=== PATIENT | female | born 1995 | race Caucasian/White ===

== ENCOUNTER 2020-07-04 01:04 | Inpatient (IN) | payer OTHER, SELFPAY ==
[2020-07-04] MEDS ORDERED: Butorphanol Tartrate 1 MG/ML VIAL SLOW IVP PRN (01:55)
[2020-07-04] MEDS ORDERED: Ondansetron PF 4 MG/2 ML Vial IVP PRN ×3 (01:55→09:48)
[2020-07-04] MEDS ORDERED: Lidocaine 1% (PF) 30 ML VIAL SC PRN (01:55)
[2020-07-04] MEDS ORDERED: Ibuprofen 800 MG TAB PO PRN (01:55)
[2020-07-04] MEDS ORDERED: HYDROcodone/Acetaminophen 5/325 mg Tablet PO PRN ×4 (01:55→09:48)
[2020-07-04] MEDS ORDERED: hydrALAZINE 20 MG/ML VIAL SLOW IVP PRN ×2 (01:55→09:48)
[2020-07-04] MEDS ORDERED: NS / Oxytocin 40 units/1000ml 1,000 ML IV PRN (01:55)
[2020-07-04] MEDS ORDERED: NS w/ Oxytocin 30 units 500 ML IVPB SCH (02:09)
[2020-07-04] MEDS ORDERED: Fentanyl 4 mcg/Bup 0.1% Cadd 100 ML ONE (02:21)
[2020-07-04] MEDS: Lactated Ringer's 1,000 ML IV SCH ×2 (02:41→03:43)
[2020-07-04 02:44] LABS: Hemoglobin 10.9 g/dL (12.0-16.0); Mean Corpuscular HGB CONC 34.8 g/dL (32.0-36.0); Mean Corpuscular Volume 86.2 fL (78.0-98.0); Mean Platelet Volume 9.7 fL (7.4-10.4); Platelet Count 80 thou/uL (130-400); Red Blood Cell (RBC) Count 3.62 mill/uL (4.20-5.40); White Blood Cell (WBC) Count 18.7 thou/uL (4.8-10.8)
[2020-07-04] MEDS ORDERED: diphenhydrAMINE 25 MG CAP PO PRN ×2 (03:00→09:48)
[2020-07-04] MEDS ORDERED: fentaNYL Citrate/PF 2,000 MCG in Sodium Chloride 0.9% 60 ML IV PRN (03:00)
[2020-07-04] MEDS ORDERED: Zolpidem Tartrate 5 MG TAB PO PRN ×2 (03:00→09:48)
[2020-07-04] MEDS ORDERED: Naloxone HCl 0.4 mg/ml Vial IV PRN (03:00)
[2020-07-04] MEDS ORDERED: Promethazine HCl 25 MG/ML VIAL IM PRN ×2 (03:00→09:48)
[2020-07-04] MEDS ORDERED: diphenhydrAMINE 50 MG/ML VIAL IM/IV PRN (03:00)
[2020-07-04 03:16] LABS: INR-International Normal Ratio 1.4; PTT 33.3 sec (22.9-36.1); Prothrombin Time 17.4 sec (12.0-14.7)
[2020-07-04 03:20] LABS: HBSAg Index 0.16 S/CO (0-0.99); Hep B Surf Ag Non-Reactive S/CO (NonReactive)
[2020-07-04 03:36] LABS: Fibrinogen 54 mg/dL (253-463)
[2020-07-04] MEDS ORDERED: Lactated Ringer's 1,000 ML IV SCH (04:15)
[2020-07-04 04:41] LABS: Syphilis Antibody Nonreactive (Nonreactive); Syphilis Antibody Index 0.02 S/CO (<1.00 Non-Reactive)
[2020-07-04] MEDS ORDERED: Misoprostol 200 MCG TAB ONE (05:07)
[2020-07-04] MEDS ORDERED: Methylergonovine 0.2 MG TAB ONE (05:07)
[2020-07-04] MEDS ORDERED: Carboprost 250 MCG/ML AMP ONE (05:08)
[2020-07-04] MEDS ORDERED: Fentanyl 100 MCG/2 ML VIAL ONE ×2 (05:09→06:05)
[2020-07-04] MEDS ORDERED: SUGAMMADEX SODIUM 500 MG/5 ML VIAL ONE (05:44)
[2020-07-04 06:09] LABS: Platelet Count 47 thou/uL (130-400)
[2020-07-04 06:11] LABS: Fibrinogen 185 mg/dL (253-463); INR-International Normal Ratio 1.3; PTT 33.7 sec (22.9-36.1); Prothrombin Time 16.6 sec (12.0-14.7)
--- NOTE | 2020-07-04 06:13 | PRG ---
DATE OF SERVICE: 07/04/2020 The patient is a 25-year-old G2, P1 female, presenting with contractions and bleeding and found to have an IUFD at 36 weeks and 5 days, believed to be secondary to abruption. While I was in a delivery, her labs returned and called out to me. Hemoglobin was 10.9, hematocrit 31.2, and platelets of 80,000. Coagulation showed PT of 17.4, INR of 1.4, PTT of 33.3, and fibrinogen of 54 and D-dimer greater than 20. Vital signs were stable at 105/59, heart rate in the one teens saturating 98% on room air. It was reported to me that she has had about 500 mL up to that point of new blood loss since arrival. 2 units of packed red blood cells, 2 units of FFP, and 2 units of cryoprecipitate were ordered and transfusion begun. Dr. Amaro her primary OB was notified while I was in the delivery and came and assumed care. The patient was taken to the operating room for a primary . Please refer to Dr. Amaro's report for details. Job ID: [id number]
[2020-07-04] MEDS ORDERED: Ondansetron HCl/PF 4 MG/2 ML Vial IVP PRN (06:29)
[2020-07-04] MEDS ORDERED: L&D-Morphine 4 MG/ML VIAL SLOW IVP PRN (06:29)
[2020-07-04] MEDS ORDERED: HYDROmorphone 2 MG/ML VIAL SLOW IVP PRN (06:29)
[2020-07-04] MEDS ORDERED: Meperidine HCl/PF 25 MG/ML VIAL SLOW IVP PRN (06:29)
[2020-07-04] MEDS ORDERED: Ketorolac Tromethamine 30 MG/ML VIAL IVP SCH (06:30)
[2020-07-04 06:46] LABS: D-Dimer Test Greater than 20.00 *mcg/mL (0.27-0.43)
[2020-07-04 07:08] LABS: FSP-Qualitative ABNORMAL (Normal); FSP-Semiquantitative >=160 & <320 mcg/mL (Less than 5)
[2020-07-04 08:14] LABS: SARS-CoV-2 MS2 Positive; SARS-CoV-2 N Gene Negative; SARS-CoV-2 S Gene Negative; SARS-CoV-2 by NAA Not Detected (NotDetected); SARS-CoV-2 orf1ab Negative
[2020-07-04] MEDS ORDERED: Adacel (T-DAP) 0.5 ML SYRINGE IM ONE (09:48)
[2020-07-04] MEDS ORDERED: Varicella virus, LIVE 0.5 ML VIAL SC ONE (09:48)
[2020-07-04] MEDS ORDERED: Measles/Mumps/Rubella 10 MCG/0.5 ML VIAL SC ONE (09:48)
[2020-07-04] MEDS ORDERED: NS / Oxytocin 40 units/1000ml 1,000 ML IV SCH (09:48)
[2020-07-04] MEDS ORDERED: Bisacodyl 10 MG SUPP PR PRN (09:48)
[2020-07-04] MEDS ORDERED: Methylergonovine 0.2 MG/ML VIAL IM PRN (09:48)
[2020-07-04] MEDS ORDERED: Prenatal Vitamin 1 TAB PO SCH (10:00)
[2020-07-04] MEDS ORDERED: Docusate Calcium (SURFAK) 240 MG CAP PO SCH (10:00)
[2020-07-04] MEDS ORDERED: Ketorolac Tromethamine 30 MG/ML VIAL IVP PRN (10:10)
[2020-07-04] MEDS ORDERED: Ketorolac Tromethamine 30 MG/ML VIAL ONE (10:18)
[2020-07-04 11:38] LABS: #Eosinphils 0.1 thou/uL (0.0-0.7); #Lymphocytes 2.2 thou/uL (1.20-3.40); #Monocytes 1.1 thou/uL (0.11-0.59); #Neutrophils 15.7 thou/uL (1.40-6.50); %Basophils 0.2 % (0.0-1.0); %Eosinophils 0.4 % (0.0-10.0); %Lymphocytes 11.5 % (21.0-51.0); %Monocytes 5.7 % (0.0-10.0); %Neutrophils 82.2 % (42.0-75.0); Band 22 % (5-11); Hemoglobin 9.8 g/dL (12.0-16.0); Lymphocytes 6 % (21-51); MDiff Complete? YES; Mean Corpuscular HGB CONC 34.4 g/dL (32.0-36.0); Mean Corpuscular Hemoglobin 29.2 pg (27.0-31.0); Mean Corpuscular Volume 84.9 fL (78.0-98.0); Mean Platelet Volume 10.6 fL (7.4-10.4); Monocytes 5 % (0-10); Neutrophil 67 % (42-75); Platelet Count 47 thou/uL (130-400); Platelet Morphology Comment Appears Decreased; Polychromasia SLIGHT = 2-3 cells (100X) (0-2/hpf); RBC Distribution Width 14.4 % (11.5-14.5); Red Blood Cell (RBC) Count 3.34 mill/uL (4.20-5.40); White Blood Cell (WBC) Count 19.1 thou/uL (4.8-10.8)
[2020-07-04] MEDS ORDERED: Ibuprofen 800 MG TAB PO SCH (14:00)
[2020-07-04 14:57] VITALS: BMI 32.9
[2020-07-04] MEDS ORDERED: metroNIDAZOLE 500 MG in Premix Bag 1 BAG IVPB SCH (15:00)
[2020-07-04] MEDS: CEFAZOLIN 2 GM in Premix Bag 1 BAG IVPB SCH (15:29)
[2020-07-04 18:36] LABS: PTT 27.1 sec (22.9-36.1); Prothrombin Time 13.4 sec (12.0-14.7)
--- NOTE | 2020-07-04 19:56 | PDOC.PP ---
Post Progress Note Post Day #: 0 PO intake tolerated: yes Flatus: no Ambulation: no Weight Weight 192 lb Most Recent Monitor Data Heart Rate from ECG 103 NIBP 100/56 - Physical Examination General: NAD Cardiovascular: no m/r/g, RRR Respiratory: clear to auscultation bilaterally, non-labored breathing Abdominal: + bowel sounds, lochia, no distention Extremities: negative homans (B) Skin: CS incision dry & intact Neurological: no gross focal deficits Psychiatric: A&Ox3, normal affect (PT/PTT/INR is back to a normal range, with stable appearing blood counts. WBC at 19 with increased bands, and therefor I have ordered further antibiotics in the post-operative periof, and added Metronidazole as well. Will transfer to PP UNIT.) Result Diagrams: 07/04/20 10:38 Additional Labs: Post Labs Hep Bs Antigen Non-Reactive S/CO (NonReactive) 07/04/20 02:27 Blood Type A POSITIVE 07/04/20 04:07
--- NOTE | 2020-07-04 20:56 | OP ---
DATE OF PROCEDURE: 07/04/2020, 0521 CANCELING MACHINE OPERATOR Surgeon: Dieter Amaro MD Printing Machine Operator: Josué Baxter MD PREOPERATIVE DIAGNOSIS: 1. Intrauterine at 36 weeks and 5 days 2. Acute Placental Abruption before presenting to the hospital resulting in sudden and profound retroplacental hemorrhage 3. Ultrasound confirmed a diagnosis of intrauterine demise upon arrival 4. 6 cm cervical dilation, with suspected SROM 5. Laboratory confirmed Coagulopathy upon presentation 6. Acute Blood Loss Anemia POSTOPERATIVE DIAGNOSIS: 1. Intrauterine at 36 weeks and 5 days 2. Acute Placental Abruption before presenting to the hospital resulting in sudden and profound retroplacental hemorrhage 3. Ultrasound confirmed a diagnosis of intrauterine demise upon arrival 4. 6 cm cervical dilation, with suspected SROM 5. Laboratory confirmed Coagulopathy upon presentation 6. Acute Blood Loss Anemia 7. Uterus was full of clot at time of uterine incision weighted at 420g, supporting the diagnosis of placental abruption. PROCEDURE: Primary low-transverse section (for diagnosis of placental abruption, acute massive hemorrhage, and ensuing coagulopathy with fear that it could progress to disseminated intravascular coagulopathy. Code Deni had been called). FINDINGS: Nonviable male infant, Apgars of 0 and 0 3360g, 7 pounds 6 ounces. No unusual findings were noted with the umbilical cord. Once the fetus was delivered, the placenta was found to be abrupted with an additional 420 mL of blood clot present inside the uterus, which was scooped out into a separate bucket. QUANTITATIVE BLOOD LOSS: To our best ability included 750 mL in the suction canister, 675 mL in laparotomy sponges, in addition 420 mL of clot noted inside the uterus consistent with placental abruption for a total of 1845 mL of blood. From the patient's account today, she believes she lost approximately a liter of blood en route to the hospital, putting her total blood loss approaching 3 L. COMPLICATIONS: 1. Massive hemorrhage as a result of placental abruption. 2. Coagulopathy. DETAILS OF THE PROCEDURE: I was first notified about this patient by telephone from Dr. Baxter, who reported a 36 week demise and possible placental abruption after he personally performed an ultrasound, and could not see heart tones. The patient was initially found to be 6cm dilated, and the initial hope from Dr. Baxter and the L&D team was that she could safely deliver the fetus vaginally, thus sparing her from the risks and healing associated with c- section. Approximately an hour later, upon notification by the charge nurse that this patient was showing signs of worsening hemorrhage, and laboratory evidence of coagulopathy, I left from home immediately to the [facility] Labor and Delivery unit. In route, by telephone, I asked the charge nurse to order a stat Anesthesia consultation, and reviewed blood product orders, in preparation for the likely need for . A erin hart was called just as I was arriving on the unit, and Dr. Baxter was also walking up to reassess the patient as I arrived. The CORE INSERTER steam flattener also joined us. The patient was extremely pale in appearance, and I asked that the patient be immediately taken back to the operating room, where blood products could best be administered, and I made the decision to proceed with , in order to try and hemodynamically stabilize the patient. I was also fearful that DIC could be developing, or could develop if trial of vaginal labor was continued. The patient was consented and taken back to the operating room where general anesthesia was found to be adequate. She was then prepped and draped in the normal sterile fashion. Dr. Keenan arrived on the scene, and a thorough time-out was performed by the entire operative team. Prior to incision, I made sure that blood products were ordered and available, and pRBCs and FFP had already been started. Ancef 2g IV was also started. An incision was then made with a scalpel. The incision was carried through the adipose tissue down to the underlying rectus fascia using both sharp dissection as well as cautery. Once the fascia was identified, it was incised in the midline and then the fascial incision was carried through in both lateral directions using sharp as well as cautery dissection techniques. Next, the superior aspect of the rectus fascia was grasped with 2 Alanna clamps, which was tented up and the rectus muscles were dissected off using blunt dissection as well as cautery dissection. Similarly, the inferior aspect of the fascial incision was grasped with 2 Alanna clamps, tented up and the rectus muscles were dissected off bluntly as well as sharply. Next, the rectus muscles were in the midline and the peritoneum identified. The peritoneum was then carefully grasped with 2 hemostats and entered sharply. The peritoneal incision was extended superiorly and inferiorly and bladder blade was placed in the lower abdomen. At this point, the uterus was identified and the bladder flap was then developed using pickups with teeth as well as Metzenbaum scissors in both lateral directions. The bladder flap was then dissected downwards using the system operator's finger as well as Metzenbaum scissors. The bladder blade was replaced. The lower uterine segment was then identified and entered sharply using a clean scalpel. The uterine incision was then dissected downwards until thin layer of muscle remained and this was entered bluntly using a hemostat to avoid any injury to the baby. The uterine incision was then stretched using two fingers in both lateral directions. An amniotomy was performed using a hemostat and the baby was delivered using a vacuum, after fundal pressure in a gentle fashion failed to deliver the head. Once out, cord was clamped and cut, and the baby was handed to waiting attendants. The placenta was removed, and findings were consistent with abruption. Next, the uterus was exteriorized, cleared of all clots and debris. Specifically, a separate container was used to measure and weigh intrauterine blood clot (420g). The uterine incision was repaired with #1 Monocryl in a running locking fashion. A 2nd suture of the same type was used to obtain complete hemostasis at the uterine incision. The bladder flap was reapproximated using 3-0 Monocryl. Next, patient's left and right adnexa were inspected and appeared to be within normal limits. The posterior cul-de-sac was blotted dry and hemostasis assured. One more look at the uterine incision demonstrated hemostasis. Next, the uterus was replaced back within the abdomen. The peritoneum was reapproximated using 2-0 Monocryl without difficulty. The rectus muscles were then allowed to come back together and 0 chromic was used to aid in reapproximation of the muscle as necessary. The rectus fascia was then reapproximated in a running fashion using 0 Vicryl suture. The adipose tissue was then examined and appeared to be well approximated without any obvious separations. Finally, the skin was reapproximated with 3-0 Monocryl on a Kye needle without difficulty and Dermabond adhesive was applied to the skin. Once the glue was dry, the drapes were removed and the patient was transferred to an ambulatory bed where she was taken to recovery awake and in stable condition. Sponge, lap, and needle counts were correct x3. Job ID: [id number] [facility]
[2020-07-04] MEDS ORDERED: FLU VACC QS2020-21(6MOS UP)/PF 60 MCG/0.5 ML SYRINGE IM ONE (21:00)
[2020-07-05] MEDS: Docusate Calcium (SURFAK) 240 MG CAP PO SCH ×3 (00:05→20:31)
[2020-07-05] MEDS: CEFAZOLIN 2 GM in Premix Bag 1 BAG IVPB SCH ×2 (00:46→09:43)
--- NOTE | 2020-07-05 02:51 | PDOC.PP ---
Post Progress Note Post Day #: 1 PO intake tolerated: yes Flatus: yes Ambulation: yes Vital Signs (12 hours) Temp Pulse Resp BP Pulse Ox 07/05/20 00:05 98.6 F 103 H 18 136/66 07/04/20 21:45 98.9 F 99 18 121/64 97 07/04/20 20:00 97 Weight Weight 192 lb Most Recent Monitor Data Heart Rate from ECG 103 NIBP 100/56 - Physical Examination General: NAD Cardiovascular: no m/r/g, RRR Respiratory: clear to auscultation bilaterally, non-labored breathing Abdominal: + bowel sounds, lochia, no distention, appropriately TTP Extremities: negative homans (B) Skin: CS incision dry & intact, no rash Neurological: no gross focal deficits Psychiatric: A&Ox3, normal affect Result Diagrams: 07/04/20 10:38 Additional Labs: Post Labs Hep Bs Antigen Non-Reactive S/CO (NonReactive) 07/04/20 02:27 Blood Type A POSITIVE 07/04/20 04:07
[2020-07-05 06:26] LABS: #Eosinphils 0.1 thou/uL (0.0-0.7); #Lymphocytes 2.9 thou/uL (1.20-3.40); #Monocytes 0.8 thou/uL (0.11-0.59); #Neutrophils 8.8 thou/uL (1.40-6.50); %Basophils 0.2 % (0.0-1.0); %Lymphocytes 22.8 % (21.0-51.0); %Monocytes 6.1 % (0.0-10.0); %Neutrophils 69.9 % (42.0-75.0); Hemoglobin 8.2 g/dL (12.0-16.0); Mean Corpuscular HGB CONC 33.8 g/dL (32.0-36.0); Mean Corpuscular Hemoglobin 28.8 pg (27.0-31.0); Mean Platelet Volume 10.1 fL (7.4-10.4); Platelet Count 83 thou/uL (130-400); RBC Distribution Width 15.2 % (11.5-14.5); Red Blood Cell (RBC) Count 2.86 mill/uL (4.20-5.40); White Blood Cell (WBC) Count 12.5 thou/uL (4.8-10.8)
[2020-07-05] MEDS: Prenatal Vitamin 1 TAB PO SCH (09:44)
[2020-07-05] MEDS: Simethicone Chewable 80 MG TAB PO PRN ×2 (09:44→20:32)
--- NOTE | 2020-07-05 10:26 | PDOC.EVN ---
Event Note - Event Note Event Note: pt doing well. Asking to take a shower. pain controlled. bleeding decreasing. platelets 80,000 vitals normal After talking with Dr Amaro, I will d/c insurance marketing rep, iv abx, and one of the Iv's.
[2020-07-05] MEDS: HYDROcodone/Acetaminophen 5/325 mg Tablet PO PRN ×3 (11:25→20:33)
[2020-07-05] MEDS: Ibuprofen 800 MG TAB PO SCH (20:32)
[2020-07-06] MEDS: Simethicone Chewable 80 MG TAB PO PRN ×3 (04:58→14:19)
[2020-07-06] MEDS: HYDROcodone/Acetaminophen 5/325 mg Tablet PO PRN ×3 (04:59→14:05)
[2020-07-06] MEDS: Ibuprofen 800 MG TAB PO SCH ×2 (05:01→14:04)
[2020-07-06 08:30] VITALS: BP 142/82; TEMP 97.8
[2020-07-06] MEDS: Docusate Calcium (SURFAK) 240 MG CAP PO SCH (09:33)
[2020-07-06] MEDS: Prenatal Vitamin 1 TAB PO SCH (09:33)
--- NOTE | 2020-07-06 14:19 | PDOC.PP ---
Post Progress Note Post Day #: 2 PO intake tolerated: yes Flatus: yes Ambulation: yes Vital Signs (12 hours) Temp Pulse Resp BP Pulse Ox 07/06/20 08:20 97.8 F 80 14 142/82 H 96 07/06/20 04:58 98.1 F 104 H 20 132/81 Weight Weight 192 lb Most Recent Monitor Data Heart Rate from ECG 103 NIBP 100/56 - Physical Examination General: NAD Cardiovascular: no m/r/g, RRR Respiratory: clear to auscultation bilaterally, non-labored breathing Abdominal: + bowel sounds, lochia, no distention, appropriately TTP Extremities: negative homans (B) Skin: CS incision dry & intact, no rash Neurological: no gross focal deficits Psychiatric: A&Ox3, normal affect Result Diagrams: 07/05/20 05:48 Additional Labs: Post Labs Hep Bs Antigen Non-Reactive S/CO (NonReactive) 07/04/20 02:27 Blood Type A POSITIVE 07/04/20 04:07
[2020-07-09] MEDS ORDERED: Ibuprofen 800 MG TAB PO SCH (14:00)
== END 2020-07-06 15:49 | disposition home or self-care (01) | DRG 786 ==
LOC: L&D/OP 01:04 → L&D 01:32 → 3SW 21:33
PROVIDERS: ADMIT Obstetrics & Gynecology; ATTEND Obstetrics & Gynecology
PROC: 10D00Z1 Extraction of Products of Conception, Low, Open Approach (ICD-10-PCS; principal; 2020-07-04)
PROC: 30233K1 Transfusion of Nonautologous Frozen Plasma into Peripheral Vein, Percutaneous Approach (ICD-10-PCS; 2020-07-04)
PROC: 30233N1 Transfusion of Nonautologous Red Blood Cells into Peripheral Vein, Percutaneous Approach (ICD-10-PCS; 2020-07-04)
PROC: 30233M1 Transfusion of Nonautologous Plasma Cryoprecipitate into Peripheral Vein, Percutaneous Approach (ICD-10-PCS; 2020-07-04)
DX: O36.4XX0 Maternal care for intrauterine death, not applicable or unspecified (principal); O45.003 Premature separation of placenta with coagulation defect, unspecified, third trimester; D62 Acute posthemorrhagic anemia; O99.354 Diseases of the nervous system complicating childbirth; O90.81 Anemia of the puerperium; F41.9 Anxiety disorder, unspecified; G43.909 Migraine, unspecified, not intractable, without status migrainosus; Z20.822 Contact with and (suspected) exposure to COVID-19; O99.344 Other mental disorders complicating childbirth; Z3A.36 36 weeks gestation of pregnancy; Z37.1 Single stillbirth
CPT/HCPCS: 36415; 36430; 51702; 85025; 85027; 85049; 85300; 85362; 85379; 85384; 85610; 85730; 86780; 86850; 86900; 86901; 87340; 87635; 88307; 99285; J0360; J0690; J1885; J3010; J3490; P9012; P9016; P9059; U0003